=== PATIENT | female | born 1960 | race Caucasian/White ===

== ENCOUNTER 2019-02-28 22:10 | Emergency (ER) | payer BC ==
[~2019-02-28] VITALS: Ht 172.7 cm; Wt 81.8 kg
[2019-02-28 23:21] LABS: BASO # 0.1 (0.0-0.2); BASO % 0.5 % (0.0-2.0); EOS # 0.3 (0.0-0.7); EOS % 2.2 % (0-4.0); GRAN # 7.5 (1.4-6.5); GRAN % 67.5 % (42.2-75.2); HEMATOCRIT 40.3 % (37.0-47.0); HEMOGLOBIN 13.5 g/dl (12.5-16.0); LYMPH # 2.3 (1.2-3.4); MEAN CELL VOLUME 90 fl (80.0-100.0); MEAN CORPUSCULAR HEMOGLOBIN 30 pg (27.0-31.0); MEAN CORPUSCULAR HGB CONC 34 g/dl (33.0-37.0); MEAN PLATELET VOLUME 10.9 fl (7.4-10.4); MONO % 8.6 % (1.7-9.3); PLATELET COUNT 264 K/mm3 (130-400); RED BLOOD COUNT 4.46 M/mm3 (4.10-5.30); REDCELL DISTRIBUTION WIDTH-CV 13.1 % (11.5-14.5)
[2019-02-28 23:27] LABS: ALANINE AMINOTRANSFERASE 19 U/L (9-52); ALKALINE PHOSPHATASE 152 U/L (50-136); ANION GAP 8 mmol/L (7-16); AST,SGOT 31 U/L (15-37); BILIRUBIN,TOTAL 0.4 mg/dL (0.0-1.0); BLOOD UREA NITROGEN 22 mg/dL (7-17); CALCIUM 9.2 mg/dL (8.4-10.2); CARBON DIOXIDE 27 mmol/L (22-30); CHLORIDE 106 mmol/L (98-107); CREATININE, serum 0.67 (0.52-1.25); GLUCOSE 121 mg/dL (74-106); POTASSIUM 4.3 mmol/L (3.4-5.0); SODIUM 141 mmol/L (137-145); TOTAL PROTEIN 7.3 gm/dL (6.4-8.2)
[2019-02-28 23:39] LABS: TROPONIN-I < 0.012 ng/mL (0.000-0.035)
[2019-03-01 00:01] LABS: D-DIMER < 200.00 ng/mLDDu (200-230)
[2019-03-01] MEDS ORDERED: NEURONTIN300 MG/CAP PO (02:56)
[2019-03-01] MEDS ORDERED: FLEXERIL 1010 MG/TAB PO (02:56)
[2019-03-01 03:11] VITALS: BP 122/57; PULSE 70
== END 2019-03-01 03:11 | disposition home or self-care (01) ==
LOC: COL.ER 22:10
PROVIDERS: Emergency Medicine
DX: M25.532 Pain in left wrist (principal); M25.512 Pain in left shoulder; F17.210 Nicotine dependence, cigarettes, uncomplicated; Z90.89 Acquired absence of other organs
CPT/HCPCS: J7030

== ENCOUNTER 2023-02-06 14:10 | Emergency (ER) | payer BC ==
[~2023-02-06] VITALS: Ht 172.7 cm; Wt 83.2 kg
[~2023-02-06 14:10] MED LIST: FLEXERIL 1010 MG/TAB PO; NEURONTIN300 MG/CAP PO
[2023-02-06 14:16] VITALS: TEMP 98.3
[2023-02-06] MEDS ORDERED: NORCO 325 MG-51 TAB PO (16:34)
[2023-02-06] MEDS ORDERED: ROBAXIN 75750 MG/TAB PO (16:34)
[2023-02-06 16:58] VITALS: BP 139/71; PULSE 80
[2023-02-06] MEDS ORDERED: MEDROL 4MG DOSPA4 MG PO (17:30)
== END 2023-02-06 16:58 | disposition home or self-care (01) ==
LOC: COL.ER 14:10
DX: M54.50 Low back pain, unspecified (principal); M06.9 Rheumatoid arthritis, unspecified; Z79.52 Long term (current) use of systemic steroids; Z87.891 Personal history of nicotine dependence; Z88.6 Allergy status to analgesic agent
CPT/HCPCS: J1885